=== PATIENT | female | born 1965 | race Caucasian/White ===

== ENCOUNTER → 2017-08-23 | Outpatient (CLI) | payer BC ==
--- NOTE | 2017-08-24 13:19 | MM ---
Reason for exam: screening (asymptomatic). Last mammogram was performed 1 year and 1 month ago. History: Retro-pectoral saline implants in both breasts, January 2003. Physical Findings: A clinical breast exam by your physician is recommended on an annual basis and results should be correlated with mammographic findings. MG Screening Mammo Implant/CAD Bilateral CC, MLO, and ID view(s) were taken. Prior study comparison: July 14, 2016, bilateral MG screening mammo implant/CAD. May 27, 2015, bilateral MG screening mammo implant/CAD. There are scattered fibroglandular densities. There is chronic nodularity in the right breast. Bilateral retropectoral saline implants. No significant changes when compared with prior studies. ASSESSMENT: Negative, BI-RAD 1 RECOMMENDATION: Routine screening mammogram of both breasts in 1 year.
== END | disposition home or self-care (01) ==
LOC: RADMAMWWP 07:49
PROVIDERS: ATTEND Obstetrics & Gynecology
DX: Z12.31 Encounter for screening mammogram for malignant neoplasm of breast (principal); Z98.82 Breast implant status
CPT/HCPCS: 77067

== ENCOUNTER → 2019-01-07 | Outpatient (CLI) | payer BC ==
--- NOTE | 2019-01-07 11:52 | MM ---
Reason for exam: screening (asymptomatic). Last mammogram was performed 1 year and 5 months ago. History: Retro-pectoral saline implants in both breasts, January 2003. Physical Findings: A clinical breast exam by your physician is recommended on an annual basis and results should be correlated with mammographic findings. MG Screening Mammo Implant/CAD Bilateral CC, MLO, and ID view(s) were taken. Prior study comparison: August 23, 2017, bilateral MG screening mammo implant/CAD. July 14, 2016, bilateral MG screening mammo implant/CAD. The breast tissue is heterogeneously dense. This may lower the sensitivity of mammography. Finding: There is a 4 mm round mass in the upper outer quadrant of the right breast. There is a chronic nodularity in the right breast. Bilateral subpectoral implants. New finding and increase in size since August 23, 2017. ASSESSMENT: Incomplete: need additional imaging evaluation, BI-RAD 0 RECOMMENDATION: Ultrasound of the right breast. [facility] will attempt to contact patient to return for ultrasound.
== END | disposition home or self-care (01) ==
LOC: RADMAMWWP 08:24
PROVIDERS: ATTEND Obstetrics & Gynecology
DX: Z12.31 Encounter for screening mammogram for malignant neoplasm of breast (principal)
CPT/HCPCS: 77067

== ENCOUNTER → 2019-01-10 | Outpatient (CLI) | payer BC ==
--- NOTE | 2019-01-10 09:10 | USB ---
Reason for exam: additional evaluation requested from abnormal screening. History: Retro-pectoral saline implants in both breasts, January 2003. Physical Findings: Nurse Summary: Patient complains of bilateral breast pain x 2 months, 1cm nodule 9 o'clock retroareolar right breast (nurse mj). US Breast Workup Limited RT Right limited breast ultrasound including focal area of concern, retroareolar and axilla demonstrates a 5 x 4 x 5mm oval, cystic lesion at 10 o'clock, benign, likely corresponds to the mammographic finding. Implant valve seen at the nurse palpated site at 9 o'clock. Scanned 9-12 o'clock. These results were verbally communicated with the patient and result sheet given to the patient on 01/10/19. ASSESSMENT: Probably benign, BI-RAD 3 RECOMMENDATION: Follow-up diagnostic mammogram of the right breast in 6 months.
== END | disposition home or self-care (01) ==
LOC: RADUSWWP 07:49
PROVIDERS: ATTEND Obstetrics & Gynecology
DX: R92.8 Other abnormal and inconclusive findings on diagnostic imaging of breast (principal)

== ENCOUNTER → 2020-02-24 | Outpatient (CLI) | payer BC ==
--- NOTE | 2020-02-25 07:39 | MM ---
Reason for exam: additional evaluation requested from prior study. Last mammogram was performed 1 year and 2 months ago. History: Retro-pectoral saline implants in both breasts, January 2003. Physical Findings: Nurse did not find any significant physical abnormalities on exam. MG 3D Diag Mammo Imp W/Cad TARAN Bilateral CC, MLO, and ID view(s) were taken. Prior study comparison: January 07, 2019, bilateral MG screening mammo implant/CAD. August 23, 2017, bilateral MG screening mammo implant/CAD. There are scattered fibroglandular densities. There is chronic nodularity in the right upper outer quadrant, stable. There is no discrete abnormality. Bilateral subpectoral implants redemonstrated. These results were verbally communicated with the patient and result sheet given to the patient on 02/24/20. ASSESSMENT: Benign, BI-RAD 2 RECOMMENDATION: Routine screening mammogram of both breasts in 1 year.
== END | disposition home or self-care (01) ==
LOC: RADMAMWWP 14:29
PROVIDERS: ATTEND Family Medicine
DX: R92.8 Other abnormal and inconclusive findings on diagnostic imaging of breast (principal)
CPT/HCPCS: 77062; 77066

== ENCOUNTER → 2021-08-13 | Outpatient (CLI) | payer BC ==
--- NOTE | 2021-08-13 08:46 | BD ---
EXAMINATION TYPE: Axial Bone Density DATE OF EXAM: 08/13/2021 COMPARISON: NONE CLINICAL HISTORY: post menopausal Height: 5'2 1/2 Weight: 176 FRAX RISK QUESTIONS: Secondary Osteoporosis: RISK FACTORS HISTORY OF: Active: n If Premenopausal, do you have irregular periods: y MEDICATIONS: Additional Medications: n Additional History: EXAM MEASUREMENTS: Bone mineral densitometry was performed using the [email or web address] System. Bone mineral density as measured about the Lumbar spine is: ----- L1-L4(G/cm2): 1.104 T Score Values are as follows: ----- L2: -0.8 ----- L3: 0.3 ----- L4: -0.9 ----- L1-L4: -0.6 Bone mineral density about the R hip (g/cm2): 0.992 Bone mineral density about the L hip (g/cm2): 0.997 T Score values are as follows: -----R Neck: -0.3 -----L Neck: -0.3 -----R Total: 0.2 -----L Total: 0.3 IMPRESSION: Normal (Values between +1 and -1 indicate normal bone mass). Consider repeating this study in 5 year s or sooner if there is some new clinical indication. NOTE: T-SCORE=SD OF THE YOUNG ADULT MEAN. post
== END | disposition home or self-care (01) ==
LOC: RADBDWWP 08:09
PROVIDERS: ATTEND Obstetrics & Gynecology
DX: Z12.31 Encounter for screening mammogram for malignant neoplasm of breast (principal); N95.1 Menopausal and female climacteric states
CPT/HCPCS: 77080

== ENCOUNTER → 2021-08-25 | Outpatient (CLI) | payer BC ==
--- NOTE | 2021-08-25 12:51 | MM ---
Reason for exam: screening (asymptomatic). Last mammogram was performed 1 year and 6 months ago. History: Patient is postmenopausal. Family history of breast cancer in mother. Retro-pectoral saline implants in both breasts, January 2003. Physical Findings: A clinical breast exam by your physician is recommended on an annual basis and results should be correlated with mammographic findings. MG 3D Screen Mammo Imp/Cad Bilateral CC, MLO, and ID view(s) were taken. Prior study comparison: February 24, 2020, bilateral MG 3d diag mammo imp w/cad TARAN. January 07, 2019, bilateral MG screening mammo implant/CAD. There are scattered fibroglandular densities. There is chronic nodularity in the right breast. Bilateral subpectoral implants redemonstrated. ASSESSMENT: Benign, BI-RAD 2 RECOMMENDATION: Routine screening mammogram of both breasts in 1 year.
== END | disposition home or self-care (01) ==
LOC: RADMAMWWP 08:32
PROVIDERS: ATTEND Obstetrics & Gynecology
DX: Z12.31 Encounter for screening mammogram for malignant neoplasm of breast (principal); Z78.0 Asymptomatic menopausal state; Z80.3 Family history of malignant neoplasm of breast
CPT/HCPCS: 77063; 77067

== ENCOUNTER → 2023-07-27 | Outpatient (CLI) | payer BC ==
--- NOTE | 2023-07-28 18:32 | MM ---
Reason for Exam: Hx of breast augmentation, asymptomatic. Last mammogram was performed 1 year(s) and 11 month(s) ago. Patient History: Menarche at age 18. First Full-Term at age 20. Postmenopausal. 01/2003, Bilateral Implants. Mother had breast cancer. Risk Values: Swapna 5 year model risk: 2.1%. NCI Lifetime model risk: 13.3%. Prior Study Comparison: 01/07/2019 Bilateral Screening Mammogram, [facility]. 02/24/2020 Bilateral Diagnostic Mammogram, [facility]. 08/25/2021 Bilateral Screening Mammogram, [facility]. Tissue Density: There are scattered fibroglandular densities. Findings: Analyzed By CAD. Bilateral breast prostheses are present. Intermammillary lymph node may be in the upper outer right mid breast. Findings are stable from comparison No suspicious groups of microcalcifications, spiculated or lobular masses, architectural distortion or other secondary signs of malignancy are mammographically apparent. Overall Assessment: Benign, BI-RAD 2 Management: Screening Mammogram of both breasts in 1 year. A negative mammogram report should not preclude additional follow up of suspicious palpable abnormalities. Patient should continue monthly self breast exam. A clinical breast exam by your physician is recommended on an annual basis and results should be correlated with mammographic findings. Electronically signed and approved by: Javon Lance D.O. Radiologis
== END | disposition home or self-care (01) ==
LOC: RADMAMWWP 08:23
PROVIDERS: ATTEND Family Medicine
DX: Z12.31 Encounter for screening mammogram for malignant neoplasm of breast (principal); Z78.0 Asymptomatic menopausal state; Z80.3 Family history of malignant neoplasm of breast
CPT/HCPCS: 77063; 77067

== ENCOUNTER → 2024-07-29 | Outpatient (CLI) | payer BC ==
--- NOTE | 2024-07-29 10:19 | MM ---
Reason for Exam: Screening (asymptomatic). Last screening mammogram was performed 12 month(s) ago. Patient History: Menarche at age 18. First Full-Term at age 20. Postmenopausal. 01/2003, Bilateral Implants. Mother had breast cancer. Risk Values: Swapna 5 year model risk: 2.2%. NCI Lifetime model risk: 13.0%. Prior Study Comparison: 02/24/2020 Bilateral Diagnostic Mammogram, [facility]. 08/25/2021 Bilateral Screening Mammogram, [facility]. 07/27/2023 Bilateral MG 3D screen mammo imp/cad., [facility]. Tissue Density: The breasts are almost entirely fatty. Findings: Analyzed By CAD. Bilateral breast implants appear intact. Right breast: There is no suspicious group of microcalcifications or new suspicious mass. Left breast: There is no suspicious group of microcalcifications or new suspicious mass. Overall Assessment: Negative, BI-RAD 1 Management: Screening Mammogram of both breasts in [address] [facility] will attempt to contact patient to return for supplemental views and ultrasound if indicated. Patient should continue monthly self-breast exams. A clinical breast exam by your physician is recommended on an annual basis. This exam should not preclude additional follow-up of suspicious palpable abnormalities. Note on Swapna scores and lifetime risk: 1. A Swapna score greater than 3% is considered moderate risk. If this is the case, consider specialist referral to assess eligibility for a risk reducing agent. 2. If overall lifetime risk for the development of breast cancer is 20% or higher, the patient may qualify for future screening with alternating mammogram and breast MRI. [facility], , 07/29/2024 10:16 AM. Electronically signed and approved by: Tyrell Marino DO
== END | disposition home or self-care (01) ==
LOC: RADMAMWWP 09:32
PROVIDERS: ATTEND Family Medicine
DX: Z12.31 Encounter for screening mammogram for malignant neoplasm of breast (principal); Z78.0 Asymptomatic menopausal state; Z80.3 Family history of malignant neoplasm of breast
CPT/HCPCS: 77063; 77067